=== PATIENT | male | born 1980 | race African-American/Black ===

== ENCOUNTER 2020-06-04 23:46 | Emergency (ER) | payer OTHER ==
[~2020-06-04] VITALS: Ht 188 cm; Wt 90.7 kg
[2020-06-05] MEDS ORDERED: LABETALOL HCL 200 MG TAB PO ONE (00:15)
[2020-06-05] MEDS ORDERED: cloNIDine HCL 0.1 MG TAB PO ONE (00:30)
[2020-06-05] MEDS ORDERED: KETOROLAC TROMETH 60MG/2ML VIAL IM ONE (02:00)
[2020-06-05 02:43] VITALS: BP 160/115
== END 2020-06-05 02:53 | disposition home or self-care (01) ==
LOC: ER 23:49
DX: M54.5 Low back pain (principal); R51.9 Headache, unspecified; V43.52XA Car driver injured in collision with other type car in traffic accident, initial encounter; Y93.89 Activity, other specified; Y92.488 Other paved roadways as the place of occurrence of the external cause; Y99.8 Other external cause status
CPT/HCPCS: 70450; 72100; 72170; 93005; 96372; 99284; J1885

== ENCOUNTER → 2021-06-05 | Emergency (ER) | payer MEDICAID, OTHER ==
[~2021-06-05] VITALS: Ht 188 cm; Wt 102.1 kg
[~2021-06-05] MED LIST: AMOX500T86 PO
[2021-06-05 23:51] VITALS: BP 180/96
== END | disposition home or self-care (01) ==
LOC: EDUNIT# 23:47 → ER 23:48 → EDBD 23:48
DX: S50.811A Abrasion of right forearm, initial encounter (principal); S80.812A Abrasion, left lower leg, initial encounter; S51.851A Open bite of right forearm, initial encounter; S81.852A Open bite, left lower leg, initial encounter; W54.0XXA Bitten by dog, initial encounter; Y93.89 Activity, other specified; Y92.89 Other specified places as the place of occurrence of the external cause; Y99.8 Other external cause status